=== PATIENT | female | born 1990 | race Caucasian/White ===

== ENCOUNTER 2018-01-16 21:29 | Emergency (ER) | payer MEDICAID, OTHER ==
[~2018-01-16] VITALS: Ht 167.6 cm; Wt 93.0 kg
[2018-01-16 22:54] LABS: BASOPHILS % 0.4 % (0.0-2.0); HEMATOCRIT. 41.3 % (36.0-48.0); HEMOGLOBIN. 14.6 g/dL (12.0-16.0); LYMPHOCYTES % 17.3 % (20.0-50.0); MEAN CORPUSCULAR HEMOGLOBIN 33.3 pg (28.0-32.0); MEAN CORPUSCULAR VOLUME 94.2 fL (81.0-99.0); MEAN PLATELET VOLUME 10.3 fl (7.4-10.4); MONOCYTES % 6.9 % (2.0-8.0); NEUTROPHILS % 73.4 % (40.0-76.0); PLATELET 98 x1000/uL (130-400); RED BLOOD CELL COUNT 4.39 mill/uL (4.2-5.4); RED CELL DISTRIBUTION WIDTH 13.2 % (11.6-14.6)
[2018-01-16 23:00] LABS: CHLORIDE 106 mEq/L (98-107)
[2018-01-16 23:05] LABS: HCG SCREEN POSITIVE
[2018-01-16 23:26] LABS: B-HCG QUANTITATIVE 53333 mIU/mL (<3)
[2018-01-17 00:52] LABS: CLARITY URINE CLOUDY (CLEAR); COLOR URINE ORANGE (YELLOW); KETONES URINE 1+ (NEGATIVE); LEUKOCYTE ESTERASE URINE 2+ (NEGATIVE); NITRITE URINE NEGATIVE (NEGATIVE); OCCULT BLOOD URINE 3+ (NEGATIVE); PROTEIN URINE 1+ (NEGATIVE); SPECIFIC GRAVITY URINE 1.014 (1.005-1.030); UROBILINOGEN URINE 0.2 E.U./dL (0.2-1.0)
[2018-01-17 02:01] VITALS: BP 119/63
== END 2018-01-17 02:07 | disposition home or self-care (01) ==
LOC: ER 21:29
DX: O23.31 Infections of other parts of urinary tract in pregnancy, first trimester (principal); R10.30 Lower abdominal pain, unspecified; Z3A.11 11 weeks gestation of pregnancy; Z98.890 Other specified postprocedural states
CPT/HCPCS: 36415; 76801; 81025; 84702; 84703; 86850; 86900; 87077; 99284

== ENCOUNTER 2018-03-04 11:30 | Emergency (ER) | payer OTHER ==
[~2018-03-04] VITALS: Ht 167.6 cm; Wt 93.7 kg
[2018-03-04] MEDS ORDERED: SODIUM CHLORIDE 0.9% 1,000 ML IV ONE (13:50)
[2018-03-04 14:27] LABS: CLARITY URINE TURBID (CLEAR); COLOR URINE YELLOW (YELLOW); KETONES URINE TRACE (NEGATIVE); LEUKOCYTE ESTERASE URINE 3+ (NEGATIVE); NITRITE URINE NEGATIVE (NEGATIVE); OCCULT BLOOD URINE NEGATIVE (NEGATIVE); PH URINE 5.5 (4.5-8.0); PROTEIN URINE TRACE (NEGATIVE); UROBILINOGEN URINE 0.2 E.U./dL (0.2-1.0)
[2018-03-04 14:38] LABS: HEMATOCRIT. 41.3 % (36.0-48.0); HEMOGLOBIN. 14.1 g/dL (12.0-16.0); MEAN CORPUSCULAR HEMOGLOBIN 31.7 pg (28.0-32.0); MEAN CORPUSCULAR VOLUME 93.1 fL (81.0-99.0); MEAN PLATELET VOLUME 11.9 fl (7.4-10.4); PLATELET 118 x1000/uL (130-400); RED BLOOD CELL COUNT 4.43 mill/uL (4.2-5.4); RED CELL DISTRIBUTION WIDTH 13.1 % (11.6-14.6)
[2018-03-04 14:46] LABS: CHLORIDE 110 mEq/L (98-107)
[2018-03-04 14:52] LABS: PLATELET ESTIMATE SLIGHTLY DECREASED
[2018-03-04 15:13] LABS: B-HCG QUANTITATIVE 16012 mIU/mL (<3)
[2018-03-04 16:30] VITALS: BP 132/72
== END 2018-03-04 16:46 | disposition home or self-care (01) ==
LOC: ER 11:30
DX: O23.12 Infections of bladder in pregnancy, second trimester (principal); Z3A.17 17 weeks gestation of pregnancy; Z98.890 Other specified postprocedural states
CPT/HCPCS: 36415; 76805; 80053; 81003; 84702; 85025; 86850; 86900; 86901; 87086; 96360; 96361; 99284; J7030

== ENCOUNTER 2018-06-19 18:46 | Observation (INO) | payer OTHER ==
[~2018-06-19] VITALS: Ht 167.6 cm; Wt 101.0 kg
[2018-06-19] MEDS ORDERED: ACETAMINOPHEN 500MG TABLET PO NR (20:00)
[2018-06-19] MEDS ORDERED: METF-815 PO (20:33)
== END 2018-06-19 21:00 | disposition home or self-care (01) ==
LOC: 8 EST LDRP 18:46
PROVIDERS: ADMIT Obstetrics & Gynecology; ATTEND Obstetrics & Gynecology
DX: O26.893 Other specified pregnancy related conditions, third trimester (principal); R42 Dizziness and giddiness; R10.30 Lower abdominal pain, unspecified; F41.9 Anxiety disorder, unspecified; Z3A.34 34 weeks gestation of pregnancy
CPT/HCPCS: 82962; 99281; G0378

== ENCOUNTER 2018-07-02 20:13 | Observation (INO) | payer OTHER ==
[~2018-07-02] VITALS: Ht 167.6 cm; Wt 91.2 kg
[~2018-07-02 20:13] MED LIST: METF-815 PO
[2018-07-02] MEDS ORDERED: LACTATED RINGERS 1,000 ML IV STA (21:08)
[2018-07-02 21:36] LABS: CLARITY URINE CLEAR (CLEAR); COLOR URINE YELLOW (YELLOW); KETONES URINE TRACE (NEGATIVE); LEUKOCYTE ESTERASE URINE 2+ (NEGATIVE); NITRITE URINE NEGATIVE (NEGATIVE); OCCULT BLOOD URINE TRACE (NEGATIVE); PROTEIN URINE NEGATIVE (NEGATIVE); SPECIFIC GRAVITY URINE 1.022 (1.005-1.030); UROBILINOGEN URINE 0.2 E.U./dL (0.2-1.0)
[2018-07-02] MEDS ORDERED: LACTATED RINGERS 1,000 ML IV SCH (21:45)
[2018-07-03] MEDS ORDERED: LACTATED RINGERS 1,000 ML IV STA (22:08)
== END 2018-07-03 00:25 | disposition home or self-care (01) ==
LOC: 8 EST LDRP 20:13
PROVIDERS: ADMIT Obstetrics & Gynecology; ATTEND Obstetrics & Gynecology
DX: O26.853 Spotting complicating pregnancy, third trimester (principal); O60.03 Preterm labor without delivery, third trimester; O24.313 Unspecified pre-existing diabetes mellitus in pregnancy, third trimester; O26.893 Other specified pregnancy related conditions, third trimester; E11.649 Type 2 diabetes mellitus with hypoglycemia without coma; R10.9 Unspecified abdominal pain; Z3A.36 36 weeks gestation of pregnancy
CPT/HCPCS: 76805; 76818; 81003; 82962; 99281; G0378; 96360; 96361

== ENCOUNTER 2020-10-28 00:06 | Emergency (ER) | payer MEDICAID ==
[~2020-10-28] VITALS: Ht 162.6 cm; Wt 73.0 kg
[~2020-10-28 00:06] MED LIST changes: +CLON0.252 MT; -METF-815 PO; +METF-873 PO
[2020-10-28] MEDS ORDERED: ONDANSETRON HCL 4MG/2ML INJ IV STA (00:38)
[2020-10-28] MEDS ORDERED: SODIUM CHLORIDE 0.9% 1,000 ML IV ONE (00:45)
[2020-10-28 01:16] LABS: CHLORIDE 116 mEq/L (98-107)
[2020-10-28 01:20] LABS: ETHANOL BLOOD 185 mg/dL
[2020-10-28 01:34] LABS: HCG SCREEN NEGATIVE
[2020-10-28 02:08] LABS: BASOPHILS % 0.7 % (0.0-2.0); EOSINOPHILS % 0.6 % (0.0-5.0); HEMATOCRIT. 41.3 % (36.0-48.0); HEMOGLOBIN. 13.9 g/dL (12.0-16.0); MEAN CORPUSCULAR HEMOGLOBIN 32.2 pg (28.0-32.0); MEAN CORPUSCULAR VOLUME 95.9 fL (81.0-99.0); MEAN PLATELET VOLUME 10.1 fl (7.4-10.4); NEUTROPHILS % 78.7 % (40.0-76.0); PLATELET 128 x1000/uL (130-400); RED BLOOD CELL COUNT 4.31 mill/uL (4.2-5.4); RED CELL DISTRIBUTION WIDTH 14.8 % (11.6-14.6)
[2020-10-28 04:30] VITALS: BP 109/56
== END 2020-10-28 04:56 | disposition home or self-care (01) ==
LOC: ER 00:06
DX: F10.129 Alcohol abuse with intoxication, unspecified (principal); Y90.6 Blood alcohol level of 120-199 mg/100 ml
CPT/HCPCS: 36415; 80053; 80320; 84703; 85025; 96361; 96374; 99283; J2405; J7030; G0480

== ENCOUNTER 2021-01-21 12:17 | Emergency (ER) | payer MEDICAID, OTHER ==
[~2021-01-21] VITALS: Ht 167.6 cm; Wt 87.0 kg
[2021-01-21] MEDS ORDERED: IBUPROFEN 800MG TABLET PO ONE (12:45)
[2021-01-21] MEDS ORDERED: IBUP-2029 MT (14:05)
[2021-01-21 14:35] VITALS: BP 121/71
== END 2021-01-21 14:37 | disposition home or self-care (01) ==
LOC: ER 12:17
DX: S92.352A Displaced fracture of fifth metatarsal bone, left foot, initial encounter for closed fracture (principal); W18.30XA Fall on same level, unspecified, initial encounter; Y93.89 Activity, other specified; Y92.89 Other specified places as the place of occurrence of the external cause; Y99.8 Other external cause status
CPT/HCPCS: 73610; 73630; 99284

== ENCOUNTER 2021-01-29 09:32 | Emergency (ER) | payer OTHER ==
[~2021-01-29] VITALS: Ht 167.6 cm; Wt 88.0 kg
[~2021-01-29 09:32] MED LIST changes: +IBUP-2029 MT
[2021-01-29] MEDS ORDERED: KETOROLAC 60MG/2ML VIAL IM STA (09:48)
[2021-01-29] MEDS ORDERED: IBUP-2029 MT (12:05)
[2021-01-29 12:23] VITALS: BP 118/68
== END 2021-01-29 12:24 | disposition home or self-care (01) ==
LOC: ER 09:32
DX: M54.89 Other dorsalgia (principal); Z91.81 History of falling
CPT/HCPCS: 71045; 81025; 96372; 99283; J1885

== ENCOUNTER 2022-07-05 13:52 | Emergency (ER) | payer OTHER ==
[~2022-07-05] VITALS: Ht 167.6 cm; Wt 90.0 kg
[2022-07-05] MEDS ORDERED: IBUP-2029 MT (18:32)
[2022-07-05 18:46] VITALS: BP 135/78
== END 2022-07-05 17:26 | disposition home or self-care (01) ==
LOC: ER 15:27
DX: S59.901A Unspecified injury of right elbow, initial encounter (principal); W18.39XA Other fall on same level, initial encounter; Y93.89 Activity, other specified; Y92.89 Other specified places as the place of occurrence of the external cause; Y99.8 Other external cause status; Z79.899 Other long term (current) drug therapy
CPT/HCPCS: 73070; 99283

== ENCOUNTER 2022-12-03 16:09 | Emergency (ER) | payer OTHER ==
[~2022-12-03] VITALS: Ht 167.6 cm; Wt 91.0 kg
[2022-12-03 16:17] VITALS: BP 120/66; PULSE 82; RESP 18; TEMP 98.3; O2SAT 99
[2022-12-03 17:07] LABS: CLARITY URINE CLOUDY (CLEAR); COLOR URINE YELLOW (YELLOW); GLUCOSE URINE NEGATIVE (NEGATIVE); KETONES URINE TRACE (NEGATIVE); LEUKOCYTE ESTERASE URINE 1+ (NEGATIVE); NITRITE URINE NEGATIVE (NEGATIVE); OCCULT BLOOD URINE NEGATIVE (NEGATIVE); PROTEIN URINE NEGATIVE (NEGATIVE); SPECIFIC GRAVITY URINE 1.024 (1.005-1.030)
[2022-12-03 17:09] LABS: BACTERIA URINE 1+; SQUAMOUS EPITHELIAL CELL URINE 2+ /lpf (RARE/1+); YEAST URINE NONE SEEN
[2022-12-03 17:38] LABS: RBC URINE 0-2 /hpf (0-2); WBC URINE 0-2 /hpf (0-2)
[2022-12-03 17:57] LABS: BASOPHILS % 0.6 % (0.0-2.0); EOSINOPHILS % 3.4 % (0.0-5.0); HEMATOCRIT. 38.8 % (36.0-48.0); HEMOGLOBIN. 13.1 g/dL (12.0-16.0); LYMPHOCYTES % 31.6 % (20.0-50.0); MEAN CORPUSCULAR HEMOGLOBIN 31.4 pg (28.0-32.0); MEAN CORPUSCULAR HGB CONC 33.7 g/dL (31.0-37.0); MEAN CORPUSCULAR VOLUME 93.4 fL (81.0-99.0); MEAN PLATELET VOLUME 11.3 fl (7.4-10.4); MONOCYTES % 7.7 % (2.0-8.0); NEUTROPHILS % 56.7 % (40.0-76.0); PLATELET 146 x1000/uL (130-400); RED BLOOD CELL COUNT 4.16 mill/uL (4.2-5.4); RED CELL DISTRIBUTION WIDTH 13.2 % (11.6-14.6); WHITE BLOOD COUNT 7.4 x1000/uL (4.5-11.0)
[2022-12-03 18:04] LABS: CHLORIDE 111 mEq/L (98-107); INDEX HEMOLYSI 1 (1-3); INDEX ICTERIC 1 (1-4); INDEX LIPEMIC 1 (1-3); POTASSIUM 3.8 mEq/L (3.5-5.1); SODIUM 139 mEq/L (136-145)
[2022-12-03 18:05] LABS: PROTHROMBIN TIME 10.3 sec (9.6-11.0)
[2022-12-03 18:17] LABS: ALANINE AMINOTRANSFERASE 28 IU/L (13-61); ALBUMIN 3.8 g/dL (3.4-5.0); ASPARTATE AMINOTRANSFERASE 17 IU/L (15-37); BILIRUBIN TOTAL 0.3 mg/dL (0.1-1.0); CALCIUM 8.2 mg/dL (8.5-10.1); CARBON DIOXIDE 24 mEq/L (21-32); CREATININE 0.7 mg/dL (0.6-1.3); GLUCOSE 124 mg/dL (70-105); PROTEIN TOTAL 7.6 g/dL (6.0-8.3); TROPONIN I HIGH SENSITIVITY 5 ng/L (<54); UREA NITROGEN BLOOD 12 mg/dL (7-21)
== END 2022-12-03 23:39 | disposition home or self-care (01) ==
LOC: ER 16:09
DX: F41.9 Anxiety disorder, unspecified (principal); R11.0 Nausea; Z79.899 Other long term (current) drug therapy
CPT/HCPCS: 36415; 71045; 80053; 81003; 81025; 84484; 85025; 93005; 99285

== ENCOUNTER 2022-12-19 06:05 | Emergency (ER) | payer OTHER ==
[~2022-12-19] VITALS: Ht 167.6 cm; Wt 86.0 kg
[2022-12-19 06:25] VITALS: BP 126/82; PULSE 80; RESP 18; TEMP 98.4; O2SAT 99
[2022-12-19 09:21] LABS: BASOPHILS % 0.7 % (0.0-2.0); DIFFERENTIAL COMMENT 0; EOSINOPHILS % 3.2 % (0.0-5.0); HEMATOCRIT. 40.4 % (36.0-48.0); HEMOGLOBIN. 13.4 g/dL (12.0-16.0); LYMPHOCYTES % 31.3 % (20.0-50.0); MEAN CORPUSCULAR HEMOGLOBIN 30.7 pg (28.0-32.0); MEAN CORPUSCULAR HGB CONC 33.1 g/dL (31.0-37.0); MEAN CORPUSCULAR VOLUME 92.9 fL (81.0-99.0); MEAN PLATELET VOLUME 11.1 fl (7.4-10.4); MONOCYTES % 7.1 % (2.0-8.0); NEUTROPHILS % 57.7 % (40.0-76.0); PLATELET 169 x1000/uL (130-400); RED BLOOD CELL COUNT 4.35 mill/uL (4.2-5.4); WHITE BLOOD COUNT 6.6 x1000/uL (4.5-11.0)
[2022-12-19 09:23] LABS: INR 0.9; PROTHROMBIN TIME 10.2 sec (9.6-11.0)
[2022-12-19 09:26] LABS: CHLORIDE 110 mEq/L (98-107); INDEX HEMOLYSI 1 (1-3); INDEX ICTERIC 1 (1-4); INDEX LIPEMIC 1 (1-3); POTASSIUM 4.1 mEq/L (3.5-5.1); SODIUM 140 mEq/L (136-145)
[2022-12-19 09:36] LABS: ALANINE AMINOTRANSFERASE 25 IU/L (13-61); ALBUMIN 3.8 g/dL (3.4-5.0); ASPARTATE AMINOTRANSFERASE 14 IU/L (15-37); BILIRUBIN TOTAL 0.7 mg/dL (0.1-1.0); CALCIUM 8.5 mg/dL (8.5-10.1); CARBON DIOXIDE 28 mEq/L (21-32); CREATININE 0.8 mg/dL (0.6-1.3); GLUCOSE 101 mg/dL (70-105); NT PRO B-TYPE NATRIURETIC PEP 42 pg/mL (5-125); PROTEIN TOTAL 7.5 g/dL (6.0-8.3); TROPONIN I HIGH SENSITIVITY 4 ng/L (<54); UREA NITROGEN BLOOD 8 mg/dL (7-21)
[2022-12-19 09:38] LABS: HCG SCREEN NEGATIVE
[2022-12-19 10:50] LABS: CLARITY URINE CLEAR (CLEAR); COLOR URINE YELLOW (YELLOW); GLUCOSE URINE NEGATIVE (NEGATIVE); KETONES URINE NEGATIVE (NEGATIVE); LEUKOCYTE ESTERASE URINE NEGATIVE (NEGATIVE); NITRITE URINE NEGATIVE (NEGATIVE); OCCULT BLOOD URINE NEGATIVE (NEGATIVE); PROTEIN URINE NEGATIVE (NEGATIVE); SPECIFIC GRAVITY URINE 1.019 (1.005-1.030); UROBILINOGEN URINE 0.2 E.U./dL (0.2-1.0)
== END 2022-12-19 07:40 | disposition left against medical advice (07) ==
LOC: ER 06:05
DX: R07.9 Chest pain, unspecified (principal); Z98.890 Other specified postprocedural states
CPT/HCPCS: 36415; 71045; 80053; 81003; 83880; 84484; 84703; 85025; 93005; 99285

== ENCOUNTER 2023-08-13 20:48 | Emergency (ER) | payer MEDICAID, OTHER ==
[~2023-08-13] VITALS: Ht 167.6 cm; Wt 86.0 kg
[2023-08-13 21:07] VITALS: TEMP 97.8; O2SAT 99
[2023-08-13] MEDS: TETRACAINE 0.5% OPHTH DROPS 4ML EACHEYE ONE (21:43)
[2023-08-13] MEDS: FLUORESCEIN SODIUM 1MG/STRIP BOTHEYE ONE (22:03)
[2023-08-13] MEDS ORDERED: ERYT1OIN6 RIGHTEYE (22:13)
[2023-08-13 22:18] VITALS: BP 132/76; PULSE 73; RESP 14
== END 2023-08-13 22:24 | disposition home or self-care (01) ==
LOC: ER 20:48
DX: H10.211 Acute toxic conjunctivitis, right eye (principal); Z79.899 Other long term (current) drug therapy
CPT/HCPCS: 99283

== ENCOUNTER 2023-10-20 10:31 | Emergency (ER) | payer MEDICAID ==
[~2023-10-20] VITALS: Ht 167.6 cm; Wt 86.0 kg
[~2023-10-20 10:31] MED LIST changes: +ERYT1OIN6 RIGHTEYE
[2023-10-20 10:38] VITALS: BP 121/85; RESP 16; TEMP 100; O2SAT 100
[2023-10-20 10:50] VITALS: PULSE 77; O2SAT 100
[2023-10-20 11:26] LABS: BASOPHILS % 0.5 % (0.0-2.0); EOSINOPHILS % 2.3 % (0.0-5.0); HEMATOCRIT. 41.8 % (36.0-48.0); HEMOGLOBIN. 13.7 g/dL (12.0-16.0); LYMPHOCYTES % 22.6 % (20.0-50.0); MEAN CORPUSCULAR HEMOGLOBIN 31.2 pg (28.0-32.0); MEAN CORPUSCULAR HGB CONC 32.8 g/dL (31.0-37.0); MEAN CORPUSCULAR VOLUME 95.2 fL (81.0-99.0); MEAN PLATELET VOLUME 11.4 fl (7.4-10.4); NEUTROPHILS % 67.6 % (40.0-76.0); PLATELET 155 x1000/uL (130-400); RED CELL DISTRIBUTION WIDTH 13.3 % (11.6-14.6); WHITE BLOOD COUNT 7.4 x1000/uL (4.5-11.0)
[2023-10-20 11:33] LABS: CHLORIDE 108 mEq/L (98-107); POTASSIUM 4.1 mEq/L (3.5-5.1); SODIUM 139 mEq/L (136-145)
[2023-10-20 11:34] LABS: CALCIUM 9.5 mg/dL (8.7-10.4); CARBON DIOXIDE 27 mEq/L (21-32)
[2023-10-20 11:39] LABS: CREATININE 0.8 mg/dL (0.6-1.0); GLUCOSE 98 mg/dL (70-105); UREA NITROGEN BLOOD 10 mg/dL (9-23)
[2023-10-20] MEDS ORDERED: LIDO1ADH7 TP (12:23)
[2023-10-20] MEDS ORDERED: LIDOCAINE 5% PATCH TOP SCH (12:30)
== END 2023-10-20 13:33 | disposition home or self-care (01) ==
LOC: ER 10:31
DX: M54.2 Cervicalgia (principal); M25.512 Pain in left shoulder; Z79.899 Other long term (current) drug therapy
CPT/HCPCS: 36415; 80048; 85025; 99283

== ENCOUNTER 2024-01-11 08:36 | Emergency (ER) | payer MEDICAID ==
[~2024-01-11] VITALS: Ht 167.6 cm; Wt 84.0 kg
[~2024-01-11 08:36] MED LIST changes: +LIDO1ADH7 TP; +METF-1149 PO; -METF-873 PO
[2024-01-11 08:38] VITALS: O2SAT 99
[2024-01-11] MEDS ORDERED: CIPHCO RIGHT EAR (10:12)
[2024-01-11 11:06] VITALS: BP 120/75; PULSE 80; RESP 18; TEMP 37.16964; O2SAT 99
== END 2024-01-11 11:35 | disposition home or self-care (01) ==
LOC: ER 08:53
DX: H60.91 Unspecified otitis externa, right ear (principal); Z98.890 Other specified postprocedural states
CPT/HCPCS: 99283

== ENCOUNTER 2024-06-20 19:05 | Emergency (ER) | payer MEDICAID ==
[~2024-06-20] VITALS: Ht 167.6 cm; Wt 68.0 kg
[~2024-06-20 19:05] MED LIST changes: +CIPHCO RIGHT EAR
[2024-06-20 19:06] VITALS: O2SAT 100
[2024-06-20 19:18] VITALS: BP 116/70; PULSE 82; RESP 14; TEMP 36.8; O2SAT 97
[2024-06-20 20:06] LABS: CLARITY URINE CLEAR (CLEAR); COLOR URINE YELLOW (YELLOW); GLUCOSE URINE NEGATIVE (NEGATIVE); KETONES URINE TRACE (NEGATIVE); LEUKOCYTE ESTERASE URINE NEGATIVE (NEGATIVE); NITRITE URINE NEGATIVE (NEGATIVE); OCCULT BLOOD URINE NEGATIVE (NEGATIVE); PH URINE 6.5 (4.5-8.0); PROTEIN URINE NEGATIVE (NEGATIVE); SPECIFIC GRAVITY URINE 1.021 (1.005-1.030); UROBILINOGEN URINE 0.2 E.U./dL (0.2-1.0)
[2024-06-20 21:45] LABS: BASOPHILS % 0.7 % (0.0-2.0); DIFFERENTIAL COMMENT 0; EOSINOPHILS % 2.6 % (0.0-5.0); HEMATOCRIT. 38.6 % (36.0-48.0); HEMOGLOBIN. 12.9 g/dL (12.0-16.0); MEAN CORPUSCULAR HEMOGLOBIN 31.2 pg (28.0-32.0); MEAN CORPUSCULAR HGB CONC 33.4 g/dL (31.0-37.0); MEAN CORPUSCULAR VOLUME 93.4 fL (81.0-99.0); MEAN PLATELET VOLUME 10.8 fl (7.4-10.4); MONOCYTES % 9.3 % (2.0-8.0); NEUTROPHILS % 52.4 % (40.0-76.0); PLATELET 178 x1000/uL (130-400); RED BLOOD CELL COUNT 4.13 mill/uL (4.2-5.4); RED CELL DISTRIBUTION WIDTH 12.8 % (11.6-14.6)
[2024-06-20 21:55] LABS: CHLORIDE 108 mEq/L (98-107); POTASSIUM 3.8 mEq/L (3.5-5.1); SODIUM 139 mEq/L (136-145)
[2024-06-20 21:56] LABS: CARBON DIOXIDE 25 mEq/L (21-32)
[2024-06-20 22:01] LABS: CREATININE 0.8 mg/dL (0.6-1.0); GLUCOSE 100 mg/dL (70-105); UREA NITROGEN BLOOD 17 mg/dL (9-23)
[2024-06-20 22:03] LABS: ALANINE AMINOTRANSFERASE 16 IU/L (10-49); ALBUMIN 4.3 g/dL (3.2-4.8); ASPARTATE AMINOTRANSFERASE 16 IU/L (<34); BILIRUBIN TOTAL 0.2 mg/dL (0.1-1.0); PROTEIN TOTAL 7.5 g/dL (6.0-8.3)
== END 2024-06-20 23:14 | disposition home or self-care (01) ==
LOC: ER 19:05
DX: R35.0 Frequency of micturition (principal); Z79.84 Long term (current) use of oral hypoglycemic drugs; Z79.899 Other long term (current) drug therapy
CPT/HCPCS: 36415; 76770; 80053; 81003; 81025; 85025; 99284

== ENCOUNTER 2024-08-07 22:16 | Emergency (ER) | payer MEDICAID ==
[~2024-08-07] VITALS: Ht 167.6 cm; Wt 88.0 kg
[2024-08-07 22:37] VITALS: O2SAT 99
[2024-08-08] MEDS: ACETAMINOPHEN 325MG TABLET PO ONE (00:02)
[2024-08-08] MEDS: KETOROLAC 30MG/ML VIAL IM ONE (00:02)
[2024-08-08] MEDS: LIDOCAINE 5% PATCH TOP SCH (00:07)
[2024-08-08] MEDS ORDERED: CYCL10TA21 MT (01:28)
[2024-08-08] MEDS ORDERED: LIDO-53 TP (01:28)
[2024-08-08] MEDS ORDERED: IBUP-2030 MT (01:28)
[2024-08-08 01:35] VITALS: BP 112/72; PULSE 70; RESP 18; TEMP 36.8; O2SAT 99
== END 2024-08-08 01:43 | disposition home or self-care (01) ==
LOC: ER 22:16
DX: S39.012A Strain of muscle, fascia and tendon of lower back, initial encounter (principal); M25.552 Pain in left hip; X58.XXXA Exposure to other specified factors, initial encounter; Y93.89 Activity, other specified; Y92.89 Other specified places as the place of occurrence of the external cause; Y99.8 Other external cause status
CPT/HCPCS: 99283; 81025; 96372; J1885

== ENCOUNTER 2024-09-25 16:13 | Emergency (ER) | payer MEDICAID ==
[~2024-09-25] VITALS: Ht 167.6 cm; Wt 89.0 kg
[~2024-09-25 16:13] MED LIST changes: +CYCL10TA21 MT; +IBUP-2030 MT; +LIDO-53 TP
[2024-09-25 16:25] VITALS: BP 117/82; TEMP 36.7; O2SAT 99
[2024-09-25 16:28] VITALS: PULSE 106; RESP 16; O2SAT 100
== END 2024-09-25 21:05 | disposition left against medical advice (07) ==
LOC: ER 16:13
DX: S61.011A Laceration without foreign body of right thumb without damage to nail, initial encounter (principal); Z53.21 Procedure and treatment not carried out due to patient leaving prior to being seen by health care provider; W45.0XXA Nail entering through skin, initial encounter; Y93.89 Activity, other specified; Y92.89 Other specified places as the place of occurrence of the external cause; Y99.8 Other external cause status

== ENCOUNTER 2024-10-03 23:23 | Emergency (ER) | payer MEDICAID ==
[~2024-10-03] VITALS: Ht 167.6 cm; Wt 89.0 kg
[2024-10-03 23:54] VITALS: O2SAT 99
[2024-10-04 00:12] LABS: BASOPHILS % 0.8 % (0.0-2.0); EOSINOPHILS % 3.7 % (0.0-5.0); HEMATOCRIT. 36.4 % (36.0-48.0); HEMOGLOBIN. 12.5 g/dL (12.0-16.0); LYMPHOCYTES % 32.8 % (20.0-50.0); MEAN PLATELET VOLUME 10.5 fl (7.4-10.4); MONOCYTES % 7.9 % (2.0-8.0); NEUTROPHILS % 54.8 % (40.0-76.0); PLATELET 183 x1000/uL (130-400); RED BLOOD CELL COUNT 3.96 mill/uL (4.2-5.4); RED CELL DISTRIBUTION WIDTH 13.5 % (11.6-14.6)
[2024-10-04 00:26] LABS: CREATININE 0.9 mg/dL (0.6-1.0); UREA NITROGEN BLOOD 14 mg/dL (9-23)
[2024-10-04 00:27] LABS: TROPONIN I HIGH SENSITIVITY < 4 ng/L (3.0-34)
[2024-10-04] MEDS: MAGNESIUM/ALUMINUM HYDROXIDE/SIMETHICONE 30ML UDC PO ONE (01:03)
[2024-10-04] MEDS: ACETAMINOPHEN 325MG TABLET PO ONE (01:03)
[2024-10-04] MEDS: VISCOUS LIDOCAINE 2% 15 ML UDC MM ONE (01:03)
[2024-10-04 01:22] LABS: HCG SCREEN NEGATIVE
[2024-10-04] MEDS ORDERED: MAG355OR21 MT (02:19)
[2024-10-04 02:32] VITALS: BP 108/67; PULSE 84; RESP 23; TEMP 36.8; O2SAT 100
== END 2024-10-04 02:34 | disposition home or self-care (01) ==
LOC: ER 10-04 00:18
DX: K29.70 Gastritis, unspecified, without bleeding (principal); Z00.00 Encounter for general adult medical examination without abnormal findings; Z79.899 Other long term (current) drug therapy
CPT/HCPCS: 36415; 71045; 76705; 80048; 84484; 84703; 85025; 93005; 99285

== ENCOUNTER 2024-11-02 04:24 | Emergency (ER) | payer MEDICAID ==
[~2024-11-02] VITALS: Ht 167.6 cm; Wt 89.0 kg
[~2024-11-02 04:24] MED LIST changes: +IBUP-1455 MT; -IBUP-2029 MT; +MAG355OR21 MT
[2024-11-02 04:36] VITALS: O2SAT 100
[2024-11-02] MEDS: FAMOTIDINE 20MG TABLET PO ONE (05:22)
[2024-11-02] MEDS ORDERED: DIPH25CA83 MT (05:23)
[2024-11-02] MEDS: DIPHENHYDRAMINE 25MG CAPSULE PO ONE (05:23)
[2024-11-02 05:53] VITALS: BP 119/56; PULSE 64; RESP 16; TEMP 36.6; O2SAT 99
== END 2024-11-02 05:56 | disposition home or self-care (01) ==
LOC: ER 04:24
DX: L29.9 Pruritus, unspecified (principal)
CPT/HCPCS: 99283; Q0163

== ENCOUNTER 2024-12-04 02:33 | Emergency (ER) | payer MEDICAID ==
[~2024-12-04] VITALS: Ht 167.6 cm; Wt 79.3 kg
[~2024-12-04 02:33] MED LIST changes: +DIPH25CA83 MT
[2024-12-04 02:37] VITALS: O2SAT 100
[2024-12-04 02:40] VITALS: BP 145/82; TEMP 36.5
[2024-12-04 03:36] VITALS: PULSE 79; RESP 20; O2SAT 98
[2024-12-04] MEDS: ALBUTEROL (0.083%) 2.5MG/3ML NEB HHN ONE (03:36)
[2024-12-04] MEDS: IBUPROFEN 600MG TABLET PO ONE (03:42)
== END 2024-12-04 05:50 | disposition left against medical advice (07) ==
LOC: ER 03:40
DX: R05.9 Cough, unspecified (principal)
CPT/HCPCS: 94640; 99283; Z7610 ×2; 94070; 94664; 98960

== ENCOUNTER 2025-01-22 17:41 | Emergency (ER) | payer MEDICAID ==
[~2025-01-22] VITALS: Ht 167.6 cm; Wt 87.0 kg
[2025-01-22 17:45] VITALS: O2SAT 97
[2025-01-22 17:50] VITALS: BP 118/77; PULSE 86; RESP 16; TEMP 37.1; O2SAT 99
== END 2025-01-22 20:08 | disposition left against medical advice (07) ==
LOC: ER 17:57
DX: R05.9 Cough, unspecified (principal); J02.9 Acute pharyngitis, unspecified
CPT/HCPCS: 99281